=== PATIENT | female | born 1995 | race Caucasian/White ===

== ENCOUNTER 2017-08-08 22:47 | Emergency (ER) | payer OTHER ==
[~2017-08-08] VITALS: Ht 154.9 cm; Wt 59.1 kg
[2017-08-08 22:50] VITALS: TEMP 98.5
[2017-08-08] MEDS ORDERED: ZOLOFT 50MG50 MG PO (22:59)
[2017-08-08] MEDS ORDERED: BIRTH CONTROL PO (23:00)
[2017-08-08] MEDS ORDERED: LEVOXYL0.05 MG PO (23:00)
[2017-08-08 23:48] LABS: COLLECTION METHOD CLEAN CATCH
[2017-08-08 23:53] LABS: PH 7 (5-8); SQUAMOUS EPITHELIAL 0-2 /hpf; URINE APPEARANCE Clear; URINE BACTERIA None Seen /hpf; URINE BILIRUBIN Negative (NEGATIVE); URINE BLOOD 1+ (NEGATIVE); URINE COLOR Colorless; URINE GLUCOSE Negative (NEGATIVE); URINE KETONE Negative (NEGATIVE); URINE LEUKOCYTE ESTERASE Trace (NEGATIVE); URINE NITRATE Negative (NEGATIVE); URINE PROTEIN(semi-quant) Negative (NEGATIVE); URINE RBC None Seen /hpf; URINE UROBILINOGEN Negative (NEGATIVE)
[2017-08-08] MEDS ORDERED: PREDNISONE20 MG PO (23:56)
[2017-08-08] MEDS ORDERED: PEPCID 20MG TAB20 MG PO (23:56)
[2017-08-09 00:55] VITALS: BP 114/76; PULSE 78
== END 2017-08-09 00:55 | disposition home or self-care (01) ==
LOC: COL.ER 22:47
PROVIDERS: Physician Assistant
DX: N90.89 Other specified noninflammatory disorders of vulva and perineum (principal); Z90.89 Acquired absence of other organs; Z88.2 Allergy status to sulfonamides
CPT/HCPCS: J7512